=== PATIENT | male | born 1970 | race Caucasian/White ===

== ENCOUNTER 2017-01-14 20:06 | Emergency (ER) | payer MEDICAID ==
[~2017-01-14] VITALS: Ht 167.6 cm; Wt 88.5 kg
[~2017-01-14 20:06] MED LIST: AUG875 PO; PSEU120T11 PO; UDROBDM PO
[2017-01-14 20:13] VITALS: Ht 167.6 cm; Wt 88.5 kg
[2017-01-14] MEDS ORDERED: KETOROLAC 60 MG INJ IM STA (22:00)
--- NOTE | 2017-01-14 22:59 | ERD ---
ER Documentation Chief Complaint Date/Time DATE: 01/14/17 TIME: 22:57 Chief Complaint pain right knee/lower leg x 2 weeks. denies injury HPI This is a 46-year-old male presents to the ER with right knee pain for the last 2 weeks. Patient states that right knee pain radiates down his right calf he feels as if his right calf is very hard and swollen. He denies any redness to the calf. He denies any shortness of breath. Patient has not traveled anywhere. He has not had any recent surgeries. He has never had a DVT or pulmonary embolism. Patient denies any trauma. 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 It is described as stabbing in nature. He has not tried anything for the pain. ROS 12 point review of systems was done, all negative except per HPI. Medications Home Meds Active Scripts Hydrocodone/Acetaminophen (Maroa 5-325 Tablet) 1 Each Tablet, 1 EACH PO Q6, #10 TAB Prov:VALENTINA BULLOCK 01/14/17 Ibuprofen* (Motrin*) 600 Mg Tab, 600 MG PO Q6, #30 TAB Prov:VALENTINA BULLOCK 01/14/17 Guaifenesin-Dextromethorphan* (Robitussin* DM) 100MG/10MG/5ML Syrup, 5 ML PO Q6H Y for COUGH for 5 Days, ML Prov:MICHAELA THAKKAR DATA ENTRY ASSISTANT 09/25/15 Pseudoephedrine Hcl (Sudafe 12-Hour) 120 Mg Tablet.er, 120 MG PO BID Y for CONGESTION for 10 Days, TAB.SA Prov:MICHAELA THAKKAR DATA ENTRY ASSISTANT 09/25/15 Amoxicillin-Clavulanate K* (Augmentin*) 875 Mg Tab, 875 MG PO BID for 10 Days, TAB Prov:MICHAELA THAKKAR DATA ENTRY ASSISTANT 09/25/15 Allergies Allergies: Coded Allergies: No Known Allergy (Unverified , 01/14/17) PMhx/Soc Medical and Surgical Hx: pt denies Medical Hx, pt denies Surgical Hx Hx Alcohol Use: No Hx Substance Use: No Hx Tobacco Use: Yes (1/2 PACK/DAY) Smoking Status: Current every day smoker Physical Exam Vitals Vital Signs Date Time Temp Pulse Resp B/P Pulse Ox O2 Delivery O2 Flow Rate FiO2 01/14/17 20:13 97.6 93 20 122/62 97 Physical Exam GENERAL: The patient is well developed and appropriate for usual state of health , in no apparent distress. HEENT: Atraumatic. CHEST: Clear to auscultation bilaterally. There are no rales, wheezes or rhonchi. HEART: Regular rate and rhythm. No murmurs, clicks, rubs or gallops. EXTREMITIES: Right knee: Patient is tender to palpation to the anterior knee he has full range of motion of the knee. He does have painful flexion of the right knee. Negative anterior drawer negative posterior drawer negative Lockman test. No crepitus. No redness or deformities. Patient does have slight swelling of the knee. There is no calf redness swelling or pain. NEURO: Alert and oriented. Results 24 hrs Current Medications Medications (Trade) Dose Ordered Sig/Myles Route PRN Reason Start Time Stop Time Status Last Admin Dose Admin Ketorolac Tromethamine (Toradol) 60 mg ONCE STAT IM 01/14/17 22:00 01/14/17 22:02 DC 01/14/17 22:06 Procedures/MDM This is a 46-year-old male presents to the ER with right knee pain. At this time there is no evidence of fracture dislocation. Patient is afebrile and well -appearing he has full range of motion of his knee. Suspicion for septic joint , osteomyelitis, deep space infection is low. At this time I am unable to rule out tear. He will be sent home with ibuprofen with Maroa. Needs to follow-up with his primary care doctor within 1-2 days or return to ER sooner if symptoms worsen. My medical decision making was discussed with the patient he understands and agrees with plan. Departure Diagnosis: Primary Impression: Knee pain Condition: Stable VALENTINA BULLOCK Jan 14, 2017 22:59
--- NOTE | 2017-01-14 23:15 | RADRPT ---
PROCEDURE: X-ray right knee CLINICAL INDICATION: Right knee pain TECHNIQUE: 3 views right knee COMPARISON: None FINDINGS: Mild joint effusion. Reference marker is directed towards the medial knee, without evident underlyi ng radiographic abnormality. No acute fracture dislocation. Soft tissues unremarkable. IMPRESSION: Small joint effusion without acute fracture. RPTAT: UU. Physician Meliza Date Time Electronically viewed and signed by Josefina Pierce Physician on 01/14/2017 23:15 RS/
--- NOTE | 2017-01-14 23:22 | RADRPT ---
PROCEDURE: US Lower extremity Venous. CLINICAL INDICATION: Right calf swelling TECHNIQUE: Multiple sonographic images of the right lower extremity deep venous system was obtaine d utilizing grayscale, color-flow, compressive sonography and doppler imaging with augmentation. COMPARISON: None. FINDINGS: There is normal compressibility / flow within the right common femoral, femoral and popliteal veins. The visualized deep veins of the calf are unremarkable. RPTAT:HJJR IMPRESSION: No sonographic evidence for deep venous thrombosis of the right lower extremity. Physician Nathan Date Time Electronically viewed and signed by Physician Nathan on 01/14/2017 23:21 /
[2017-01-14] MEDS ORDERED: IBUP-1542 PO (23:25)
[2017-01-14] MEDS ORDERED: HYDR-906 PO (23:26)
== END 2017-01-14 23:43 | disposition home or self-care (01) ==
LOC: FTE 20:06
DX: M25.561 Pain in right knee (principal); F17.210 Nicotine dependence, cigarettes, uncomplicated
CPT/HCPCS: 73562; 93971; 96372; J1885; Z7502

== ENCOUNTER 2018-03-26 12:13 | Emergency (ER) | END 2018-03-26 14:28 | disposition home or self-care (01) ==

== ENCOUNTER 2018-03-27 09:51 | Emergency (ER) | END 2018-03-27 10:46 | disposition home or self-care (01) ==